=== PATIENT | female | born 1950 | race Two or more races ===

== ENCOUNTER 2024-01-15 09:35 | Outpatient (AMB) | payer MEDICARE, MEDICAID, SELFPAY ==
[2024-01-15 10:44] VITALS: BP 125/74; PULSE 60; RESP 18; TEMP 36.2; O2SAT 96; BMI 33.8
--- NOTE | 2024-01-15 10:44 | ORTHONT_ITS ---
Vital signs 01/15/24 10:44 Height 1.6 m Height Method Stated Weight 86.75 kg Weight Measurement Method Standing Scale BMI 33.8 BP 125/74 Blood Pressure Source Automatic Cuff Blood Pressure Location Right Upper Arm Position Sitting Respiration 18 Pulse 60 Pulse Source Monitor Temp 97.2 F Temp Source Temporal Artery Scan Pulse Oximetry (%) 96 Oxygen Delivery Method Room Air Med/Allergies Allergies & Medications Allergies Sulfa (Sulfonamide Antibiotics) Allergy (Verified 01/15/24 10:45) Medication Reconciliation atorvastatin 20 mg tablet 20 mg PO QDAY 01/15/24 [History Confirmed 01/15/24] duloxetine 20 mg capsule,delayed release 20 mg PO BID 01/15/24 [History Confirmed 01/15/24] lisinopril 5 mg tablet 5 mg PO QDAY 01/15/24 [History Confirmed 01/15/24] metformin 500 mg tablet 500 mg PO QDAY 01/15/24 [History Confirmed 01/15/24] Subjective Visit Visit for: new patient, hip (BILATERAL) and knee (BILATERAL) Immunization / Flu Flu Vaccine in the Last 12 Months: Yes Flu Vaccine Exclusion Criteria: Already Received History of Present Illness Chief complaint: BILATERAL HIP AND KNEE PAIN Eleni is a pleasant 73-year-old female with left knee pain. She reports that this pain has been ongoing for couple years. The left knee pain is significantly worse than the right and any other body part. Is affecting her quality life and happiness. We discussed different treatment options including anti-inflammatories which she is already tried. She tried meloxicam. The pain is affecting her quality life and she is using a cane Personal History Red flag PMH: none Pain Pain level (0-10): 10 Pain duration: CONSTANT Pain location: inside (medial), outside (lateral), anterior and posterior Pain quality: sharp, dull and aching Pain timing: night, increases with activity and stairs Associated signs & symptoms: none Ambulatory data Ambulatory device: cane Treatments Improvement with previous injections: No Improvement with PT: No Improvement with NSAIDS: no Review of Systems Review of Systems: All systems negative unless otherwise noted in HPI. Exam Exam Patient is in no acute distress and is cooperative with the examination today. Breathing is nonlabored. Patient has a normal mood and affect. Bilateral extremities were evaluated and demonstrates sensation intact to light touch. Palpable pedal pulses are present. No significant edema is present. Bilateral hips were examined. The patient has no pain with log roll of the hips. Internal rotation to 30 degrees and external rotation to 30 degrees is painless. Negative FADIR. Right knee was examined today. The right knee is in reasonable alignment. Range of motion from 0-120 degrees. Knee is stable to varus and valgus as well as AP translation with <5mm. Patient has a negative McMurrays. There is no pain with patellofemoral compression and no crepitus noted. The knee is nontender to palpation. Left knee was examined today. The left knee is in [varus] alignment. Range of motion from [0-115] degrees. Knee is stable to varus and valgus as well as AP translation with <5mm. Patient has a [negative] McMurrays. There is [no] pain with patellofemoral compression and [no] crepitus noted. The knee is Tender to palpation medially Assessment and Plan Problem List (1) Arthritis of left knee: Status: Acute Plan: Patient is a pleasant 73-year-old female with left knee pain and left knee arthritis. The pains been ongoing for over a year. She tried nonoperative Options including anti-inflammatories. We will likely give her an injection at the next visit as she has not had 1. We will do like to get weightbearing x- rays before we do this.She also has hip pain and we are thus getting hip x-rays as well Advanced Care Planning Discussion Advance care planning discussed with:: patient Office Procedures GNS Level of Care Nursing/Assessment Patient Status: Established Patient Nursing Assessment/Reassesment: Medication Reconciliation, Update PMH in EMR and Vital Signs Coordination of Care: Complex Care and Chronic Disease 1-5, Education Complex Pt/Fam, Consent,records obtained, informed consent and Staff clarify orders Established Patient Charge Established Patient Point Assignment: 90 Established Patient Point Charge: EP Level 3 (80-115) Past Medical History Past Medical History Have you ever been diagnosed with any of the following: Respiratory Problems Smoking: No Smoking Exposure: No Endocrine Problems Diabetes Mellitus Type 1: Yes
== END 2024-01-15 10:54 | disposition home or self-care (01) ==
LOC: HODSRG 09:35
PROVIDERS: PCP Physician Assistant; Referring Provider Physician Assistant; Supervising Provider Orthopaedic Surgery Adult Reconstructive Orthopaedic Surgery; Visit Provider Orthopaedic Surgery Adult Reconstructive Orthopaedic Surgery
DX: M17.12 Unilateral primary osteoarthritis, left knee (principal); M25.562 Pain in left knee
CPT/HCPCS: 99213; G0463

== ENCOUNTER 2024-01-24 09:10 | Outpatient (AMB) | payer MEDICARE, MEDICAID, SELFPAY ==
[2024-01-24 09:16] VITALS: BP 123/80; PULSE 84; RESP 19; TEMP 36.3; O2SAT 96; BMI 33.8
--- NOTE | 2024-01-24 09:16 | ORTHONT_ITS ---
Vital signs 01/24/24 09:16 Height 1.6 m Height Method Stated Weight 86.693 kg Weight Measurement Method Standing Scale BMI 33.8 BP 123/80 Blood Pressure Source Automatic Cuff Blood Pressure Location Right Upper Arm Position Sitting Respiration 19 Pulse 84 Pulse Source Monitor Temp 97.4 F Temp Source Temporal Artery Scan Pulse Oximetry (%) 96 Oxygen Delivery Method Room Air Med/Allergies Allergies & Medications Allergies Sulfa (Sulfonamide Antibiotics) Allergy (Verified 01/24/24 09:17) Medication Reconciliation atorvastatin 20 mg tablet 20 mg PO QDAY 01/15/24 [History Confirmed 01/24/24] duloxetine 20 mg capsule,delayed release 20 mg PO BID 01/15/24 [History Confirmed 01/24/24] lisinopril 5 mg tablet 5 mg PO QDAY 01/15/24 [History Confirmed 01/24/24] metformin 500 mg tablet 500 mg PO QDAY 01/15/24 [History Confirmed 01/24/24] Subjective Visit Visit for: follow up visit and knee Immunization / Flu Flu Vaccine in the Last 12 Months: Yes Flu Vaccine Exclusion Criteria: Already Received History of Present Illness Chief complaint: 1 WEEK FOLLOW UP ON LEFT KNEE Eleni is a pleasant 73-year-old female with left knee pain. She reports that this pain has been ongoing for couple years. The left knee pain is significantly worse than the right and any other body part. Is affecting her quality life and happiness. We discussed different treatment options including anti-inflammatories which she is already tried. She tried meloxicam. The pain is affecting her quality life and she is using a cane Personal History Red flag PMH: none Pain Pain level (0-10): 5 Pain duration: CONSTANT Pain location: inside (medial), outside (lateral), anterior and posterior Pain quality: sharp Pain timing: increases with activity and stairs Associated signs & symptoms: none Ambulatory data Ambulatory device: cane Treatments Improvement with previous injections: No Improvement with PT: No Improvement with NSAIDS: no Review of Systems Review of Systems: All systems negative unless otherwise noted in HPI. Exam Exam Patient is in no acute distress and is cooperative with the examination today. Breathing is nonlabored. Patient has a normal mood and affect. Bilateral extremities were evaluated and demonstrates sensation intact to light touch. Palpable pedal pulses are present. No significant edema is present. Bilateral hips were examined. The patient has no pain with log roll of the hips. Internal rotation to 30 degrees and external rotation to 30 degrees is painless. Negative FADIR. Right knee was examined today. The right knee is in reasonable alignment. Range of motion from 0-120 degrees. Knee is stable to varus and valgus as well as AP translation with <5mm. Patient has a negative McMurrays. There is no pain with patellofemoral compression and no crepitus noted. The knee is nontender to palpation. Left knee was examined today. The left knee is in [varus] alignment. Range of motion from [0-115] degrees. Knee is stable to varus and valgus as well as AP translation with <5mm. Patient has a [negative] McMurrays. There is [no] pain with patellofemoral compression and [no] crepitus noted. The knee is Tender to palpation medially Left knee x-rays demonstrate complete obliteration of the medial joint space. There is osteophytes laterally as well. Assessment and Plan Problem List (1) Arthritis of left knee: Status: Acute (2) Arthritis of right knee: Status: Acute Plan: Patient is a 73-year-old female with bilateral knee pain and bilateral knee arthritis. The left knee is of significant severity on x-ray. We discussed nonoperative and operative options. She would like to try a cortisone injection which is reasonable. It has been a while since her last cortisone injection Recommend knee cortisone injections as patient would like to proceed with conservative treatment at this time. The risks and benefits of the procedure were reviewed with the patient and patient gave verbal consent to continue with the procedure. Procedure: performed by Dr. Boogie Using sterile technique the Bilateral knees were thoroughly prepped with alcohol, and approximately 1 cc of Kenalog 40 mg/mL and 4 cc of 1% lidocaine was injected into each knee without resistance into the medial tibial femoral joint space. The patient tolerated the procedure. Advanced Care Planning Discussion Advance care planning discussed with:: patient Office Procedures GNS Level of Care Nursing/Assessment Patient Status: Established Patient Nursing Assessment/Reassesment: Medication Reconciliation, Update PMH in EMR and Vital Signs Coordination of Care: Complex Care/Chronic Disease 5 or more, Education Complex Pt/Fam, Consent,records obtained, informed consent, Results/Orders obtained, Staff clarify orders and Transfer to another [facility] Established Patient Charge Established Patient Point Assignment: 115 Established Patient Point Charge: EP Level 3 (80-115) Surgical Proc/IM SQ injection Major Surgical Procedure: Yes (BILATERAL KNEE INJECTIONS ) Medication Given Medication Given Medication Given: Yes Documented Dose Given: 4 Route: Infiitration Office Meds Xylocaine 10 mg/mL (1 %) injection solution Performing Provider: Ramón Boogie MD Performing Location: [facility] Administered by: Ramón Boogie MD on 01/24/24 10:34 Dose Route Admin Location Dispensed Lot Number Expiration Date [facility] [employer] 40 mL Infiltration 40 mL [id number] 11/23/26 95487-654-75 [facility] triamcinolone acetonide 40 mg/mL suspension for injection Performing Provider: Ramón Boogie MD Performing Location: [facility] Administered by: Ramón Boogie MD on 01/24/24 10:34 Dose Route Admin Location Dispensed Lot Number Expiration Date [facility] [employer] 80 mg Infiltration 2 mL [id number] 10/24/23 [id number] [employer] Past Medical History Past Medical History Have you ever been diagnosed with any of the following: Respiratory Problems Smoking: No Smoking Exposure: No Endocrine Problems Diabetes Mellitus Type 1: Yes Surgical History Hysterectomy: Yes Additional Surgical History: GALLBLADDER REMOVAL, ANKLE SURGERY
== END 2024-01-24 09:58 | disposition home or self-care (01) ==
PROVIDERS: PCP Physician Assistant; Referring Provider Physician Assistant; Supervising Provider Orthopaedic Surgery Adult Reconstructive Orthopaedic Surgery; Visit Provider Orthopaedic Surgery Adult Reconstructive Orthopaedic Surgery
DX: M17.0 Bilateral primary osteoarthritis of knee (principal); M25.562 Pain in left knee; M25.561 Pain in right knee
CPT/HCPCS: 20610; 99213; J3301; J3490; G0463